=== PATIENT | female | born 1980 | race Hispanic/Latino ===

== ENCOUNTER 2018-06-03 14:18 | Emergency (ER) | payer MEDICAID ==
[2018-06-03 14:31] VITALS: BP 106/67; PULSE 73; RESP 16; TEMP 98.6; O2SAT 95; BMI 26.4
--- NOTE | 2018-06-03 14:53 | ED PDOC ---
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 Patient reports that she has been taking prozac for the past 1x year. Patient denies having fevers, chills, pain, and use of new medications. PMD: Mary Pedroza MD Past Medical History Reviewed: Historical Data, Nursing Documentation, Vital Signs Vital Signs: Last Vital Signs Temp 98.6 F 06/03/18 14:30 Pulse 73 06/03/18 14:30 Resp 16 06/03/18 14:30 BP 106/67 06/03/18 14:30 Pulse Ox 95 06/03/18 14:30 AMOS Report Viewed: Yes - Medical History PMH: Depression, Diabetes - Surgical History Other surgeries: right knee surgery - Family History Family History: States: No Known Family Hx - Social History Current smoker - smoking cessation education provided: No Alcohol: None Drugs: Denies - Home Medications Home Medications: Ambulatory Orders Medication Instructions Recorded No Known Home Med 03/05/18 - Allergies Allergies/Adverse Reactions: Allergies Allergy/AdvReac Type Severity Reaction Status Date / Time No Known Allergies Allergy Verified 06/03/18 14:44 Review of Systems ROS Statement: Except As Marked, All Systems Reviewed And Found Negative Constitutional: Negative for: Fever, Chills ENT: Positive for: Other (dry throat). Negative for: Throat Pain Physical Exam - Reviewed Nursing Documentation Reviewed: Yes Vital Signs Reviewed: Yes - Physical Exam Appears: Positive for: Well, Non-toxic, No Acute Distress Head Exam: Positive for: ATRAUMATIC, NORMOCEPHALIC Skin: Positive for: Normal Color, Warm, Dry Eye Exam: Positive for: Normal appearance ENT: Positive for: Normal ENT Inspection, Pharynx Is (clear). Negative for: Pharyngeal Erythema Cardiovascular/Chest: Positive for: Regular Rate, Rhythm Respiratory: Positive for: Normal Breath Sounds Neurologic/Psych: Positive for: Alert, Oriented (3x) - ECG O2 Sat by Pulse Oximetry: 95 (RA) Pulse Ox Interpretation: Normal Medical Decision Making Medical Decision Makin:40 Initial impression: 37 year old female with a dry throat. Plan: Advised patient to follow up with PMD for side effects of medication use. Scribe Attestation: Documented byPatricia Lindsay, acting as a scribe for Dale Corey PA-C. Provider Scribe Attestation: All medical record entries made by the Scribe were at my direction and personally dictated by me. I have reviewed the chart and agree that the record accurately reflects my personal performance of the history, physical exam, medical decision making, and the department course for this patient. I have also personally directed, reviewed, and agree with the discharge instructions and disposition. Disposition - Clinical Impression Clinical Impression: Dry throat - Patient ED Disposition Is Patient to be Admitted: No - Disposition Disposition: Routine/Home Disposition Time: 14:50 Condition: FAIR Instructions: Sore Throat, Adult (DC)
== END 2018-06-03 15:26 | disposition home or self-care (01) ==
LOC: H.ER 14:18
DX: R68.2 Dry mouth, unspecified (principal)